=== PATIENT | male | born 1955 | race Caucasian/White ===

== ENCOUNTER → 2016-11-13 | Outpatient (CLI) | payer SELFPAY ==
[~2016-11-13] MED LIST: ASPI-558 PO; CARV6.2530 PO; HYDR-2164 PO; SIMV20TA80 PO; [UNRECOGNIZED DRUG - CODE] PO
== END ==
LOC: LABN 09:23
PROVIDERS: ATTEND Family Medicine
DX: R73.9 Hyperglycemia, unspecified (principal)
CPT/HCPCS: 82010

== ENCOUNTER → 2016-11-24 | Outpatient (CLI) | payer SELFPAY ==
--- NOTE | 2016-11-25 08:18 | ECHOF ---
DATE OF PROCEDURE 11/24/2016 INDICATIONS This is a two-dimensional echo with spectral Doppler, color-flow, and M-mode. It was obtained in a patient with coronary artery disease. DESCRIPTION OF PROCEDURE Left atrial dimension is normal. Left ventricular end-diastolic dimension is normal. LV systolic function is reduced with global hypokinesia with ejection fraction of about 35%. Right atrium is normal. Right ventricle is normal. Aortic root dimension is normal. Mitral valve is morphologically normal with mild mitral regurgitation. Aortic valve is a trileaflet structure with no stenosis or insufficiency. Tricuspid valve shows mild tricuspid regurgitation with normal estimated pulmonary artery systolic pressure of 18. Pulmonary valve shows no pulmonary insufficiency. There is no pericardial effusion. IMPRESSION 1. Global hypokinesia with ejection fraction in the range of 35%. 2. Mild tricuspid regurgitation with normal estimated pulmonary artery systolic pressure of 18. 3. Mild mitral regurgitation. MTDD
== END ==
LOC: IMA 10:27
PROVIDERS: ATTEND Internal Medicine Cardiovascular Disease
DX: I25.810 Atherosclerosis of coronary artery bypass graft(s) without angina pectoris (principal); I42.8 Other cardiomyopathies
CPT/HCPCS: 93306